=== PATIENT | female | born 1985 | race Hispanic/Latino ===

== ENCOUNTER 2024-08-19 13:20 | Inpatient (IN) | payer BC ==
[2024-08-19] VITALS (22 sets, daily range): BP systolic 84–115; BP diastolic 49–72; PULSE 74–110; RESP 15–18; TEMP 97.3–98.3; O2SAT 99
[~2024-08-19] VITALS: Ht 149.9 cm; Wt 53.5 kg
[2024-08-19 14:35] LABS: BASOPHILS # (AUTO) 0.03 K/uL (0.00-0.20); BASOPHILS % (AUTO) 0.2 % (0.0-5.0); EOSINOPHILS # (AUTO) 0.01 K/uL (0.00-0.70); EOSINOPHILS % (AUTO) 0.1 % (0.0-8.0); HEMATOCRIT 37.7 % (36-48); IMMATURE GRANULOCYTE ABSOLUTE 0.07 K/uL (0-1); LYMPHOCYTES # (AUTO) 1.7 K/uL (1.0-4.8); LYMPHOCYTES % (AUTO) 11.9 % (21.0-51.0); MEAN CORPUSCULAR HEMOGLOBIN 28.9 pg (27.0-33.0); MEAN CORPUSCULAR HGB CONC 33.2 g/dL (32.0-36.0); MEAN CORPUSCULAR VOLUME 87.1 fL (79-99); MONOCYTES # (AUTO) 1.1 K/uL (0.1-1.0); MONOCYTES % (AUTO) 7.5 % (3.0-13.0); NEUTROPHILS # (AUTO) 11.6 K/uL (1.8-7.7); NEUTROPHILS % (AUTO) 79.8 % (40.0-77.0); PLATELET COUNT (AUTO) 226 K/uL (130-400); RED BLOOD CELL COUNT(AUTO) 4.33 MIL/uL (4.00-5.50); RED CELL DISTRIBUTION WIDTH 12.6 % (11.0-15.5); WHITE BLOOD COUNT (AUTO) 14.5 K/uL (4.8-10.8)
[2024-08-19 14:43] LABS: CREATININE 0.9 mg/dL (0.5-1.0); POTASSIUM 3.1 mmol/L (3.5-5.1)
[2024-08-19] MEDS: 0.9%NACL 1000ML 1,000 ML IV ONE (14:44)
[2024-08-19] MEDS: ZOSYN 3.375GM +NS 50ML IVPB STA (14:44)
[2024-08-19] MEDS ORDERED: IOHEXOL 350 MG/ML 100ML INFUS..BTL IV ONE (15:13)
[2024-08-19 15:20] LABS: APPEARANCE,URINE CLEAR (CLEAR); BILIRUBIN,URINE NEGATIVE (NEGATIVE); COLOR,URINE YELLOW (YELLOW); GLUCOSE, URINE (UA) NEGATIVE (NEGATIVE); KETONES,URINE 20 mg/dL (NEGATIVE); LEUKOCYTE ESTERASE ,URINE 75 Leu/uL (NEGATIVE); NITRATE,URINE NEGATIVE (NEGATIVE); OCCULT BLOOD,URINE NEGATIVE (NEGATIVE); PH,URINE 6.5 (5.0-8.0); PROTEIN,URINE 20 mg/dL (NEGATIVE); UROBILINOGEN,URINE 0.2 mg/dL (0.2-1.0)
[2024-08-19] MEDS ORDERED: IOHEXOL-350 75 ML VIAL IV ONE (15:21)
[2024-08-19 15:23] LABS: ADD UA MICROSCOPIC YES
[2024-08-19 15:26] LABS: BACTERIA,URINE RARE /HPF (None Seen); MUCUS,URINE RARE LPF (None Seen); SQUAMOUS EPITHELIAL CELL,UR FEW /HPF (0-2)
[2024-08-19] MEDS: ondanSETRON 4MG INJ IVP ONE (16:05)
[2024-08-19] MEDS: morPHINE 2 MG SYG IVP ONE (16:05)
[2024-08-19] MEDS ORDERED: morPHINE 2 MG SYG IVP PRN (16:30)
[2024-08-19] MEDS ORDERED: acetaMINOPHEN 325 MG TAB PO PRN (16:30)
[2024-08-19] MEDS ORDERED: ondanSETRON 4MG INJ IVP PRN (16:30)
[2024-08-19] MEDS ORDERED: dexaMETHasone SOD PHOSPHATE 4 MG/ML 1ML VIAL ONE (16:54)
[2024-08-19] MEDS ORDERED: LIDOCAINE PF 100MG/5ML (2%) SYRINGE 5ML ONE (16:54)
[2024-08-19] MEDS ORDERED: GLYCOPYRROLATE 0.2 MG/ML 5 ML VIAL ONE (16:56)
[2024-08-19] MEDS ORDERED: NEOSTIGMINE METHYLSULFATE 1MG/ML IV ONE (16:56)
[2024-08-19] MEDS ORDERED: ondanSETRON 4MG INJ ONE (16:56)
[2024-08-19] MEDS ORDERED: proPOFol 10 MG/ML 20ML VIAL IV ONE (16:56)
[2024-08-19] MEDS ORDERED: MIDAZOLAM HCL 1 MG/ML 2ML VIAL ONE (16:56)
[2024-08-19] MEDS ORDERED: SUCCINYLCHOLINE CHLORIDE 20 MG/ML 10 ML VIAL ONE (16:56)
[2024-08-19] MEDS ORDERED: FENTanyl CITRate PF 50 MCG/1 ML 2ML VIAL ONE ×2 (16:57→18:00)
[2024-08-19] MEDS ORDERED: rocuRONium bROMide 10MG/1ML 5ML VL ONE (16:57)
[2024-08-19] MEDS ORDERED: ROPivacaine 0.5% 5MG/ML 30ML ONE (17:20)
[2024-08-19] MEDS: acetaMINOPHEN 100 ML ONE (18:59)
[2024-08-19] MEDS: ZOSYN 3.375GM +NS 50ML IV SCH (22:07)
[2024-08-19] MEDS: 0.9%NACL 1000ML 1,000 ML IV SCH (22:25)
[2024-08-20 00:35] VITALS: BP 96/51; PULSE 72
[2024-08-20 01:35] VITALS: BP 99/53; PULSE 71
[2024-08-20 04:00] VITALS: BP 99/56; PULSE 79; RESP 18; TEMP 98.3
[2024-08-20 06:20] LABS: BASOPHILS # (AUTO) 0.02 K/uL (0.00-0.20); BASOPHILS % (AUTO) 0.1 % (0.0-5.0); HEMATOCRIT 32.5 % (36-48); IMMATURE GRANULOCYTE ABSOLUTE 0.08 K/uL (0-1); LYMPHOCYTES # (AUTO) 1.3 K/uL (1.0-4.8); LYMPHOCYTES % (AUTO) 9.1 % (21.0-51.0); MEAN CORPUSCULAR HEMOGLOBIN 28.6 pg (27.0-33.0); MEAN CORPUSCULAR HGB CONC 32.9 g/dL (32.0-36.0); MEAN CORPUSCULAR VOLUME 86.9 fL (79-99); MONOCYTES # (AUTO) 1.2 K/uL (0.1-1.0); MONOCYTES % (AUTO) 8.3 % (3.0-13.0); NEUTROPHILS # (AUTO) 11.6 K/uL (1.8-7.7); NEUTROPHILS % (AUTO) 81.9 % (40.0-77.0); PLATELET COUNT (AUTO) 208 K/uL (130-400); RED BLOOD CELL COUNT(AUTO) 3.74 MIL/uL (4.00-5.50); RED CELL DISTRIBUTION WIDTH 12.7 % (11.0-15.5); WHITE BLOOD COUNT (AUTO) 14.1 K/uL (4.8-10.8)
[2024-08-20 06:30] LABS: CREATININE 0.7 mg/dL (0.5-1.0); MAGNESIUM 1.8 mg/dL (1.80-2.40); POTASSIUM 3.6 mmol/L (3.5-5.1)
[2024-08-20] MEDS ORDERED: PoTASSium chloRIDE 20MEQ/100ML 100 ML IV PRN (07:30)
[2024-08-20] MEDS ORDERED: PoTASSium chl 10% ELIXIR 20MEQ 20 MEQ/15 ML UDCUP PO PRN (07:30)
[2024-08-20 07:41] VITALS: O2SAT 100
[2024-08-20] MEDS: PoTASSium chloRIDE 20MEQ ER 20 MEQ ERTAB PO PRN (07:41)
[2024-08-20 07:58] VITALS: BP 119/71; PULSE 102; RESP 20; TEMP 98.6
[2024-08-20] MEDS: MAGNESIUM 2GM PREMIX 50ML 50 ML IV PRN (10:12)
[2024-08-20 11:33] VITALS: BP 111/68; PULSE 85; RESP 20; TEMP 98.5
== END 2024-08-20 15:15 | disposition home or self-care (01) | DRG 399 ==
LOC: EDH 13:20 → EDHIP 16:04 → 3AH 19:44
PROVIDERS: ADMIT Internal Medicine Infectious Disease; ATTEND Internal Medicine Infectious Disease
PROC: 0DTJ4ZZ Resection of Appendix, Percutaneous Endoscopic Approach (ICD-10-PCS; principal; 2024-08-19 17:00)
DX: K35.80 Unspecified acute appendicitis (principal); E87.6 Hypokalemia; D72.829 Elevated white blood cell count, unspecified; Z79.899 Other long term (current) drug therapy
CPT/HCPCS: 36415; 74177; 76705; 80048; 81001; 83735; 84703; 85025; 87086; 96365; 96375; G0378; J0330; J1100; J2003; J2250; J2270; J2405; J2543; J2704; J2710; J2795; J3010; J3475; J3490; J7030; Q9967; A4649; A4930; A6206; C1769